=== PATIENT | male | born 1945 | race Caucasian/White ===

== ENCOUNTER 2017-06-14 11:55 | Observation (INO) | payer MEDICARE ==
[2017-06-14 12:29] LABS: Mean Corpuscular Hemoglobin 30.5 pg (27.0-31.0); Mean Corpuscular Volume 89.7 fl (80.0-94.0); RBC Distribution Width 12.9 % (11.5-14.5); Red Blood Cell (RBC) Count 5.23 mill/uL (4.70-6.10); White Blood Cell (WBC) Count 4.3 thou/uL (4.8-10.8)
[2017-06-14 12:46] LABS: ALT (SGPT) 44 U/L (8-55); AST (SGOT) 55 U/L (5-34); Albumin 4.3 g/dL (3.4-4.8); Alkaline Phosphatase 131 U/L (40-150); Anion Gap 15 mmol/L (10-20); BUN (Urea Nitrogen) 18 mg/dL (8.4-25.7); Bilirubin, Total 1.1 mg/dL (0.2-1.2); CK (CPK) 64 U/L (30-200); Calc. Creatinine Clearance 0 mL/min (70-130); Calcium 9.9 mg/dL (7.8-10.44); Carbon Dioxide 24 mmol/L (23-31); Chloride 101 mmol/L (98-107); Estimated GFR-MDRD 76; Globulin 3.4 g/dL (2.4-3.5); Glucose 216 mg/dL (83-110); Potassium 4.3 mmol/L (3.5-5.1); Protein, Total 7.7 g/dL (5.8-8.1); Sodium 136 mmol/L (136-145)
[2017-06-14 12:48] LABS: #Basophils 0.1 thou/uL (0.0-0.2); #Eosinphils 0.1 thou/uL (0.0-0.7); #Lymphocytes 0.9 thou/uL (1.20-3.40); #Monocytes 0.3 thou/uL (0.11-0.59); %Basophils 1.4 % (0.0-1.0); %Eosinophils 3.1 % (0.0-10.0); %Lymphocytes 21.5 % (21.0-51.0); %Monocytes 5.8 % (0.0-10.0); %Neutrophils 68.2 % (42.0-75.0); Mean Platelet Volume 8.1 fL (7.4-10.4); PLT Morphology Comment Appears Decreased; Platelet Count 115 thou/uL (130-400); RBC Morphology Normal
[2017-06-14 12:50] LABS: CKMB 1.5 ng/mL (0-6.6); Troponin I Less than 0.010 ng/mL (< 0.028)
--- NOTE | 2017-06-14 13:28 | CT ---
CT BRAIN NONCONTRAST: HISTORY: 72-year-old male with left facial and left hand hypesthesia (numbness). FINDINGS: There is no midline shift or any other mass effect. There is no evidence of acute intracranial hemor rhage, large cortical infarct, obstructive hydrocephalus, or extraaxial fluid collection. The calvar ium is intact. There is a tiny 2 mm metallic or calcific body in the preseptal soft tissues at the an terosuperior aspect of the left eye. No intraorbital, post septal gross abnormality is identified. Bi lateral tympanomastoid calvities are clear. Circumferential irregular mucosal thickening of the right maxillary sinus, causing approximately 50% opacification. This is associated with mildly thickened o sseous bates, suggesting that this is probably a chronic, long standing process. IMPRESSION: 1. No acute intracranial findings. 2. Tiny metallic or calcific foreign body in the preseptal region of the left eye. 3. Chronic right maxillary sinusitis. karo POS: CHRISTY
[2017-06-14] MEDS ORDERED: Dextrose 5% in Water 1,000 ML IV PRN (14:10)
[2017-06-14] MEDS ORDERED: Dextrose 50% Abboject 50 ML SYRINGE SLOW IVP PRN (14:10)
[2017-06-14] MEDS ORDERED: HumaLOG 300 UNITS/3 ML VIAL SC PRN (14:10)
[2017-06-14] MEDS ORDERED: Ondansetron ODT 4 MG TAB PO PRN (14:34)
[2017-06-14] MEDS ORDERED: HYDROcodone/Acetaminophen 5/325 mg Tablet PO PRN (14:34)
[2017-06-14] MEDS ORDERED: Acetaminophen 325 MG TAB PO PRN (14:34)
[2017-06-14] MEDS ORDERED: Senokot 8.6 MG TAB PO PRN (14:34)
[2017-06-14] MEDS ORDERED: Milk Of Magnesia 30 ML UDCUP PO PRN (14:34)
[2017-06-14] MEDS ORDERED: hydrALAZINE 20 MG/ML VIAL SLOW IVP PRN (14:36)
[2017-06-14] MEDS ORDERED: Aspirin 81 mg Enteric Coated Tablet PO SCH (14:45)
[2017-06-14] MEDS ORDERED: Aspirin 325 MG TAB ONE (15:12)
[2017-06-14 15:50] LABS: Troponin I Less than 0.010 ng/mL (< 0.028)
[2017-06-14 18:26] VITALS: BMI 25.6
[2017-06-14 18:59] LABS: Troponin I Less than 0.010 ng/mL (< 0.028)
[2017-06-14] MEDS ORDERED: Atorvastatin Calcium 40 MG TAB PO SCH (21:00)
[2017-06-14] MEDS: Docusate 100 MG CAP PO SCH (21:14)
--- NOTE | 2017-06-14 22:18 | HP ---
PRIMARY CARE PHYSICIAN: None. CHIEF COMPLAINT: Left-sided numbness and tingling. HISTORY OF PRESENT ILLNESS: Bobby Ibrahim is a 72-year-old male with a history of atrial fibrillation on Eliquis, CAD status post CABG x3, hypertension, hyperlipidemia, and type 2 diabetes mellitus, who presented to the emergency room after he had an episode of facial numbness on the left side, headaches, and twitching of his left eye. This was associated with tingling and numbness on the left arm. He denied facial droops, changes in speech, or loss of consciousness. He had no fevers, chills, nausea, vomiting, chest pain, shortness of breath, PND, palpitations, or orthopnea. It started around 11:00 a.m. suddenly and resolved after about an hour. There was no associated hemiparesis. No seizure activity. He reports that he has been on Eliquis for the past 6 weeks, but stopped last Thursday after he had two episodes of hematuria and was supposed to follow up with the urologist. He was to have held Eliquis until the appointment. PAST MEDICAL HISTORY: Atrial fibrillation, CABG x3, CAD, hypertension, hyperlipidemia, type 2 diabetes mellitus. PAST SURGICAL HISTORY: CABG, appendectomy. FAMILY HISTORY: Reviewed and not pertinent. SOCIAL HISTORY: Chews tobacco, does not drink alcohol or use illicit drugs. ALLERGIES: None. REVIEW OF SYSTEMS: Constitutional: Denies fevers or chills. Eyes: Positive twitching left orbital area. Denies photophobia or changes in vision. ENT: Negative. Cardiovascular: Negative. Respiratory: Negative. GI: Negative. : Negative. Musculoskeletal: Numbness/tingling in left arm, otherwise negative. Skin: Negative. Neurologic: Positive for paresthesia and dysesthesia. Endocrine: Negative. Hematology: Negative. Allergy/immunology : Negative. PHYSICAL EXAMINATION: VITAL SIGNS: Bradycardic with heart rate of 45 (patient on metoprolol). Other vital signs within normal limits. GENERAL: Not in acute distress, lying comfortably in bed. HEENT: PERRLA, EOMI. Not pale and anicteric. Moist oral mucosa. NECK: Supple, full range of movement. RESPIRATORY: Vesicular breath sounds bilaterally. No wheezes, rales, or rhonchi. CARDIOVASCULAR: S1, S2, only. Regular rate and rhythm. No murmurs, rubs, or gallops. ABDOMEN: Bowel sounds positive. Soft, nondistended, nontender, no organomegaly. EXTREMITIES: Strength 5/5 in all extremities. SKIN: Warm, dry, well-perfused. No rashes or lesions. NEUROLOGIC: Alert and well oriented. No focal deficits. PSYCHIATRIC: Normal mood and affect. LABORATORY DATA: His labs showed unremarkable. WBC apart from platelet count of 115. Chemistry also unremarkable apart from glucose of 260 and the initial troponin was less than 0.01. CT brain without contrast done revealed no acute intracranial findings showed chronic right maxillary sinusitis on a tiny metallic or calcific foreign body in the preseptal region of the left eye. ASSESSMENT AND PLAN: 1. Transient ischemic attack. The patient presented with paresthesia and dysesthesia, which lasted for about an hour with complete resolution of his symptoms. Due to his history of atrial fibrillation, and the fact that he recently held his anticoagulation before presenting with symptoms generally and concern for possible ischemic cerebrovascular accident. He will be admitted to the stroke unit, monitored on telemetry. An MRI brain without contrast will be obtained as well as a TTE. We will also allow for permissive hypertension and hold his home beta-blockers. Neurology will be consulted as well. In the meantime, he will be placed on sequential compression devices due to possible hemorrhagic conversions. We will follow up with his MRI. He will be continued on aspirin and statin. We will also get a lipid profile. 2. Coronary artery disease status post coronary artery bypass graft x3, stable , chest pain free. We will resume statins, aspirin, and his other home medications apart from metoprolol. 3. Atrial fibrillation. He is currently rate controlled. We will hold metoprolol. Monitor on telemetry. Eliquis was also be held. 4. Type 2 diabetes mellitus with hyperglycemia. He will be placed on a diabetic diet. Fingerstick glucose will be monitored a.c. and at bedtime. We will resume his home oral hypoglycemics and place on sliding scale insulin with hypoglycemia protocol in place. 5. Hyperlipidemia. Continue statin. MTDD
[2017-06-15 06:00] LABS: INR-International Normal Ratio 1.2; Prothrombin Time 15.2 SEC (12.0-14.7)
[2017-06-15 06:03] LABS: Anion Gap 9 mmol/L (10-20); BUN (Urea Nitrogen) 13 mg/dL (8.4-25.7); Calc. Creatinine Clearance 96 mL/min (70-130); Calcium 8.8 mg/dL (7.8-10.44); Carbon Dioxide 26 mmol/L (23-31); Cardiac Risk 3.6 (Less than 4.5); Chloride 106 mmol/L (98-107); Cholesterol 79 mg/dl (< 200 Desired); Estimated GFR-MDRD Greater than 90; Glucose 106 mg/dL (83-110); HDL Cholesterol 22 mg/dL (>60 Neg Risk); LDL Cholesterol, Calculated 44 mg/dL; Potassium 3.9 mmol/L (3.5-5.1); Sodium 137 mmol/L (136-145); Triglycerides 66 mg/dL (Less than 150)
[2017-06-15 06:05] LABS: #Eosinphils 0.2 thou/uL (0.0-0.7); #Lymphocytes 1.2 thou/uL (1.20-3.40); #Monocytes 0.4 thou/uL (0.11-0.59); #Neutrophils 2.1 thou/uL (1.40-6.50); %Eosinophils 4.5 % (0.0-10.0); %Monocytes 9.8 % (0.0-10.0); %Neutrophils 53.7 % (42.0-75.0); Hemoglobin 14.3 g/dL (14.0-18.0); Mean Corpuscular HGB CONC 33.9 g/dL (32.0-36.0); Mean Corpuscular Hemoglobin 30.6 pg (27.0-31.0); Platelet Count 99 thou/uL (130-400); RBC Distribution Width 12.9 % (11.5-14.5); Red Blood Cell (RBC) Count 4.67 mill/uL (4.70-6.10); White Blood Cell (WBC) Count 3.9 thou/uL (4.8-10.8)
[2017-06-15] MEDS ORDERED: ALPRAZolam 1 MG TAB PO PRN (06:36)
[2017-06-15] MEDS ORDERED: BENAZEPRIL HCL 20 MG PO SCH (09:00)
[2017-06-15] MEDS ORDERED: Non-Formulary Item 1 EACH (Insulin Glargine,Hum.Rec.Anlog [Toujeo Solostar] 10 UNIT) SQ SCH (09:00)
[2017-06-15] MEDS ORDERED: Finasteride 5 MG TAB PO SCH (09:00)
[2017-06-15] MEDS ORDERED: Aspirin 81 mg Enteric Coated Tablet PO SCH (09:00)
[2017-06-15] MEDS ORDERED: Insulin Detemir 100 UNITS/ML 10 UNITS in Pre-Filled Syringe 1 EACH SC SCH (09:00)
[2017-06-15] MEDS ORDERED: metFORMIN 500 MG TAB PO SCH (09:00)
[2017-06-15] MEDS: Docusate 100 MG CAP PO SCH (09:47)
--- NOTE | 2017-06-15 11:14 | PDOC.PN ---
- Subjective Encounter Start Date: 06/15/17 Encounter Start Time: 09:50 -: old records requested/rev Patient seen and examined. No new complaints. No overnight events - Objective MAR Reviewed: Yes Vital Signs & Weight: Vital Signs (12 hours) Temp Pulse Resp BP BP Pulse Ox 06/15/17 09:48 152/78 H 06/15/17 08:40 97.9 F 56 L 14 06/15/17 07:39 97.9 F 56 L 14 122/78 98 06/15/17 06:15 97.7 F 76 16 142/56 H 96 06/15/17 01:26 108/72 I&O: 06/14/17 06/15/17 06/16/17 06:59 06:59 06:59 Intake Total 480 Balance 480 Result Diagrams: 06/15/17 05:05 06/15/17 05:05 Additional Labs: Accuchecks 06/15/17 06/14/17 06/14/17 06:01 21:24 17:07 POC Glucose 119 H 231 H 290 H Radiology Reviewed by me: Yes EKG Reviewed by me: Yes Phys Exam - Physical Examination Constitutional: NAD HEENT: PERRLA, moist MMs, sclera anicteric Neck: no JVD, supple Respiratory: no wheezing, no rales, no rhonchi Cardiovascular: RRR, no significant murmur, no rub Gastrointestinal: soft, non-tender, no distention, positive bowel sounds Musculoskeletal: no edema, pulses present Neurological: non-focal, normal sensation, moves all 4 limbs Psychiatric: normal affect, A&O x 3 Skin: no rash, normal turgor Dx/Plan (1) TIA (transient ischemic attack) Status: Acute (2) CAD (coronary artery disease) Code(s): I25.10 - ATHSCL HEART DISEASE OF [place] CORONARY ARTERY W/O ANG PCTRS Status: Chronic (3) Diabetes type 2, controlled Code(s): E11.9 - TYPE 2 DIABETES MELLITUS WITHOUT COMPLICATIONS Status: Chronic (4) Dyslipidemia Code(s): E78.5 - HYPERLIPIDEMIA, UNSPECIFIED Status: Chronic (5) Hypertension Code(s): I10 - ESSENTIAL (PRIMARY) HYPERTENSION Status: Chronic (6) Paroxysmal atrial fibrillation Code(s): I48.0 - PAROXYSMAL ATRIAL FIBRILLATION Status: Chronic - Plan cont current plan of care, plan discussed w/ family * MRI and echo pending result * neurology to see later today * will need anticoagulation given his high CHADS2 score * medication reviewed as below * symptomatic treatment * discussed with . Review of Systems - Review of Systems ENT: negative: Ear Pain, Ear Discharge, Nose Pain, Nose Discharge, Nose Congestion, Mouth Pain, Mouth Swelling, Throat Pain, Throat Swelling, Other Respiratory: negative: Cough, Dry, Shortness of Breath, Hemoptysis, SOB with Excertion, Pleuritic Pain, Sputum, Wheezing Cardiovascular: negative: chest pain, palpitations, orthopnea, paroxysmal nocturnal dyspnea, edema, light headedness, other Gastrointestinal: negative: Nausea, Vomiting, Abdominal Pain, Diarrhea, Constipation, Melena, Hematochezia, Other Genitourinary: negative: Dysuria, Frequency, Incontinence, Hematuria, Retention , Other Musculoskeletal: negative: Neck Pain, Shoulder Pain, Arm Pain, Back Pain, Hand Pain, Leg Pain, Foot Pain, Other Skin: negative: Rash, Lesions, Dion, Bruising, Other - Medications/Allergies Allergies/Adverse Reactions: Allergies Allergy/AdvReac Type Severity Reaction Status Date / Time No Known Drug Allergies Allergy Verified 06/14/17 17:54 Medications: Current Medications Acetaminophen (Tylenol) 650 mg PO Q4H PRN PRN Reason: Headache/Fever or Pain Hydrocodone Bitart/Acetaminophen ([place] 5/325) 1 tab PO Q4H PRN PRN Reason: Moderate Pain (4-6) Alprazolam (Xanax) 1 mg PO HS PRN PRN Reason: Agitation Aspirin (Ecotrin) 81 mg PO DAILY [facility] Last Admin: 06/15/17 09:48 Dose: 81 mg Atorvastatin Calcium (Lipitor) 20 mg PO HS [facility] Benazepril HCl (Lotensin) 20 mg PO DAILY [facility] Last Admin: 06/15/17 09:48 Dose: 20 mg Dextrose/Water (Dextrose 50%) 25 gm SLOW IVP PRN PRN PRN Reason: Hypoglycemia Docusate Sodium (Colace) 100 mg PO BID [facility] Last Admin: 06/15/17 09:47 Dose: Not Given Finasteride (Proscar) 5 mg PO DAILY [facility] Last Admin: 06/15/17 09:47 Dose: 5 mg Glucagon (Glucagon) 1 mg IM PRN PRN PRN Reason: Hypoglycemia Hydralazine HCl (Apresoline) 10 mg SLOW IVP Q4H PRN PRN Reason: BP > 220/110 Dextrose/Water (D5w) 1,000 mls @ 0 mls/hr IV .Q0M PRN; As Directed PRN Reason: Hypoglycemia Insulin Detemir 10 units/ (Miscellaneous Medication) 0.1 mls @ 0 mls/hr SC DAILY [facility] Last Admin: 06/15/17 09:49 Dose: 0.1 mls Insulin Human Lispro (Humalog) 0 units SC .MILD SLIDING SCALE PRN PRN Reason: Mild Correctional Scale Magnesium Hydroxide (Milk Of Magnesium) 30 ml PO DAILYPRN PRN PRN Reason: Constipation Metformin HCl (Glucophage) 500 mg PO BID [facility] Last Admin: 06/15/17 09:47 Dose: 500 mg Ondansetron HCl (Zofran Odt) 4 mg PO Q6H PRN PRN Reason: Nausea/Vomiting Senna (Senokot) 2 tab PO HSPRN PRN PRN Reason: Constipation Sodium Chloride (Flush - Normal Saline) 10 ml IVF Q12HR [facility] Last Admin: 06/15/17 09:52 Dose: 10 ml Sodium Chloride (Flush - Normal Saline) 10 ml IVF PRN PRN PRN Reason: Saline Flush
--- NOTE | 2017-06-15 11:22 | MRI ---
MRI BRAIN NONCONTRAST: Date: 06/15/17 HISTORY: 72-year-old male with diagnosis of stroke. Left facial and left hand hypesthesia (numbness). FINDINGS: The ventricles are normal in size and configuration. There is no restricted diffusion, midline shift or any other mass effect, recent intraaxial hemorrhage, or extraaxial fluid collection. There are a few scattered punctate T2-hyperintensities in the cerebral white matter consistent with mild chronic ischemic white matter changes due to mild microvascular atherosclerosis. There is magnetic susceptibility artifact arising from the tiny metallic foreign body in the left eye lid that was demonstrated on the recent CT of 06/14/17. There is circumferential mucosal thickening c ausing moderate to severe partial opacification of the right maxillary sinus. There is mild mucosal t hickening throughout the left maxillary sinus. IMPRESSION: 1. Mild chronic ischemic white matter changes. 2. Otherwise normal brain. 3. Tiny ferromagnetic left preseptal foreign body. 4. Chronic right maxillary sinus mucosal changes. jnr POS: OFF
[2017-06-15 11:42] VITALS: BP 148/82; TEMP 97.6
--- NOTE | 2017-06-15 13:24 | DIS ---
DATE OF ADMISSION: 06/14/2017 DATE OF DISCHARGE: 06/15/2017 PRIMARY CARE PHYSICIAN: Dr. Michael Jha. DISCHARGE DISPOSITION: Home. PRIMARY DISCHARGE DIAGNOSIS: Transient ischemic attack. SECONDARY DISCHARGE DIAGNOSES: Diabetes, type 2; hypertension; dyslipidemia; coronary artery disease ; paroxysmal atrial fibrillation. PRIMARY PROCEDURE/OPERATION: None. RADIOLOGICAL INVESTIGATION: MRI brain negative for any acute stroke, but it showed chronic maxillary sinusitis. Echocardiography, official report is pending. CT brain was negative for any acute intra cranial process. Echocardiography subsequently reported as moderate pulmonary hypertension, atrial f ibrillation, EF 55%-60%. DISCHARGE MEDICATIONS: Xanax 1 mg p.o. at bedtime, aspirin 81 mg p.o. daily, benazepril 20 mg p.o. d aily, Proscar 5 mg p.o. daily, Lantus 10 units subcu daily, metformin 500 mg p.o. b.i.d., Zocor 40 mg p.o. at bedtime, Eliquis 5 mg p.o. b.i.d., Augmentin 875 mg p.o. twice daily for 7 days. CONTRAINDICATIONS: None. CODE STATUS: FULL CODE. INPATIENT CONSULTANTS: Neurology consulted while in hospital. TEST RESULTS PENDING ON DISCHARGE: None. ALLERGIES: No known drug allergy. DISCHARGE PLAN: Post hospital, the patient will follow up with primary care physician. HOSPITAL COURSE: A 72-year-old male who was admitted by Dr. Kim. Patient initially came to [facility] hospital room with a complaint of left-sided numbness and tingling and slurred speech. There was rené rn of CVA versus TIA. Initial CT brain was negative, and subsequently, we did an MRI brain that also negative for any stroke, but that was chronic maxillary sinusitis. Echocardiography did not show an y acute process. As this patient has underlying history of atrial fibrillation as well as diabetes a nd history of TIA, he is high risk for having stroke and that is why we started Eliquis 5 mg p.o. b.i .d.. Risks and benefits of this medication discussed. Overall, this patient is medically stable for discharge. He does not have any focal neurological deficit. On the day of discharge, I also prescr ibed Augmentin for maxillary sinusitis. All new medication prescriptions given to him. Patient is m edically stable for discharge today. The patient is seen and examined at bedside today. Please see my progress note from today for further details. Plan of care discussed with the patient's family me mber as well.
--- NOTE | 2017-06-15 14:07 | PRG ---
DATE OF SERVICE: 06/15/2017 SUBJECTIVE: Mr. Ibrahim was admitted to the hospital with some left-sided facial numbness. He under went neurologic evaluation and was found to have not had a stroke. He is feeling well now. No chest pain or pressure. OBJECTIVE: VITAL SIGNS: Blood pressure 148/82; pulse is in the 40-60 range, it is atrial fibrillation. LUNGS: Clear. CARDIAC: Irregularly irregular. ABDOMEN: Soft, nontender. EXTREMITIES: No edema. ASSESSMENT: 1. Previous bypass surgery. 2. Left facial numbness, ?transient ischemic attack versus other. 3. Atrial fibrillation, now persistent, relatively slow rate. PLAN: 1. He is to resume Eliquis 5 mg twice a day. 2. Continue aspirin. 3. Continue benazepril. 4. We will send him a home monitor. At some point, he would likely need pacemaker insertion. At th is point, it is not clear whether he may have had a TIA, being off the Eliquis for about a week. He developed hematuria and he was supposed to be off Eliquis a few days, but he has been off for a week. He has to go back on the Eliquis. We will give him a home monitor. Likely, he will need pacemaker insertion. He is also going to see urologist.
[2017-06-15] MEDS ORDERED: Atorvastatin Calcium 20 MG TAB PO SCH (21:00)
[2017-06-15] MEDS ORDERED: Simvastatin 40 MG TAB PO SCH (21:00)
== END 2017-06-15 14:17 | disposition home or self-care (01) ==
LOC: ERS 11:55 → 2SE 16:36
PROVIDERS: ADMIT Internal Medicine; ATTEND Internal Medicine
DX: G45.9 Transient cerebral ischemic attack, unspecified (principal); I10 Essential (primary) hypertension; E11.9 Type 2 diabetes mellitus without complications; I25.10 Atherosclerotic heart disease of native coronary artery without angina pectoris; I48.0 Paroxysmal atrial fibrillation; E78.5 Hyperlipidemia, unspecified; F17.220 Nicotine dependence, chewing tobacco, uncomplicated; Z95.1 Presence of aortocoronary bypass graft
CPT/HCPCS: 70450; 70551; 80048; 80053; 80061; 82550; 82553; 82962 ×2; 84484 ×2; 85025 ×2; 85610; 93005; 93306; 97139 ×5; 99285; G0378; G8978; G8979; G8980; G8987; G8988; G8989; 36415; 36416; A4216; G8996-GN-CH; G8997-GN-CH; J1815

== ENCOUNTER 2017-06-30 07:28 | Outpatient (CLI) | payer MEDICARE ==
[2017-06-30] MEDS ORDERED: ISOVUE-370 76%-LOCM 1 ML ONE (12:44)
== END 2017-06-30 07:29 | disposition home or self-care (01) ==
LOC: BICCT 07:28
PROVIDERS: ATTEND Urology
DX: R31.0 Gross hematuria (principal); N40.0 Benign prostatic hyperplasia without lower urinary tract symptoms; N32.89 Other specified disorders of bladder; N28.1 Cyst of kidney, acquired
CPT/HCPCS: 74178

== ENCOUNTER 2019-03-12 15:18 | Emergency (ER) | payer MEDICARE | END 2019-03-12 17:20 | disposition home or self-care (01) | LOC: ERS 15:18 | DX: S50.01XA Contusion of right elbow, initial encounter (principal); S40.021A Contusion of right upper arm, initial encounter; E11.9 Type 2 diabetes mellitus without complications; I10 Essential (primary) hypertension; W18.30XA Fall on same level, unspecified, initial encounter | CPT/HCPCS: 99283 ==

== ENCOUNTER 2021-12-26 12:04 | Outpatient (CLI) | payer OTHER ==
[2021-12-26 14:05] LABS: Hemoglobin 14.5 g/dL (13.5-17.5); Mean Corpuscular HGB CONC 35.3 g/dL (32.0-36.0); Mean Corpuscular Hemoglobin 31.1 pg (27.0-33.0); Mean Corpuscular Volume 88.2 fl (81.2-95.1); Mean Platelet Volume 10.8 fl (7.4-10.4); Platelet Count 99 10x3/uL (150-450); RBC Distribution Width 13.4 % (11.5-14.5); Red Blood Cell (RBC) Count 4.66 10x6/uL (4.32-5.72); White Blood Cell (WBC) Count 4.7 10x3/uL (3.5-10.5)
[2021-12-26 14:12] LABS: Anion Gap 10 mmol/L (10-20); BUN (Urea Nitrogen) 21 mg/dL (8.4-25.7); Calc. Creatinine Clearance 0 mL/min (70-130); Calcium 8.9 mg/dL (7.8-10.44); Carbon Dioxide 29 mmol/L (23-31); Chloride 103 mmol/L (98-107); Estimated GFR 79; Glucose 128 mg/dL (83-110); INR-International Normal Ratio 1.1; Prothrombin Time 11.9 sec (9.5-12.1); Sodium 138 mmol/L (136-145)
== END 2021-12-26 12:05 | disposition home or self-care (01) ==
LOC: LABBT 12:04
PROVIDERS: ATTEND Urology
DX: Z01.818 Encounter for other preprocedural examination (principal); N48.89 Other specified disorders of penis; Z20.822 Contact with and (suspected) exposure to COVID-19
CPT/HCPCS: 80048; 85027; 85610; 85730; 87811; 93005; 93010

== ENCOUNTER 2021-12-31 11:10 | Day surgery (SDC) | payer OTHER ==
[2021-12-27 13:35] VITALS: BMI 24.4
[2021-12-31] MEDS ORDERED: fentaNYL Citrate/PF 100 MCG/2 ML SYRINGE ONE (13:44)
[2021-12-31] MEDS ORDERED: Bupivacaine 0.25% 10 ML VIAL ONE ×2 (13:52→13:53)
[2021-12-31] MEDS ORDERED: Bacitracin Zinc Ointment 30 gm TUBE ONE (13:53)
[2021-12-31] MEDS ORDERED: CEFAZOLIN 2 GM VIAL ONE (13:57)
[2021-12-31] MEDS ORDERED: Sodium Chloride 0.9% 100 ML ONE (13:57)
[2021-12-31] MEDS ORDERED: Dexamethasone 20 MG/5 ML VIAL ONE (14:12)
[2021-12-31] MEDS ORDERED: Lidocaine 1% MPF 2 ML VIAL ONE (14:12)
[2021-12-31] MEDS ORDERED: Ondansetron PF 4 MG/2 ML Vial ONE (14:12)
[2021-12-31] MEDS ORDERED: PROPOFOL 200 MG/20 ML VIAL ONE (14:12)
== END 2021-12-31 16:05 | disposition home or self-care (01) ==
LOC: SDC 11:10
PROVIDERS: ATTEND Urology
PROC: 0VBSXZZ Excision of Penis, External Approach (ICD-10-PCS; principal; 2021-12-31)
DX: D07.4 Carcinoma in situ of penis (principal); I48.20 Chronic atrial fibrillation, unspecified; E11.9 Type 2 diabetes mellitus without complications; I10 Essential (primary) hypertension; Z79.01 Long term (current) use of anticoagulants; Z79.4 Long term (current) use of insulin; Z79.84 Long term (current) use of oral hypoglycemic drugs; Z79.899 Other long term (current) drug therapy; Z95.1 Presence of aortocoronary bypass graft
CPT/HCPCS: 36416; 88305; J0690; J1100; J2405; J2704; J3490; S0020

== ENCOUNTER 2022-01-25 06:37 | Emergency (ER) | payer OTHER ==
[2022-01-25] MEDS ORDERED: Dexamethasone 4 MG TAB ONE (09:09)
== END 2022-01-25 08:40 | disposition home or self-care (01) ==
LOC: ERS 06:37
DX: J30.9 Allergic rhinitis, unspecified (principal); R13.10 Dysphagia, unspecified; I48.91 Unspecified atrial fibrillation; I25.10 Atherosclerotic heart disease of native coronary artery without angina pectoris; E11.9 Type 2 diabetes mellitus without complications; I10 Essential (primary) hypertension; Z79.84 Long term (current) use of oral hypoglycemic drugs
CPT/HCPCS: 70360; J8540

== ENCOUNTER 2022-03-16 13:10 | Emergency (ER) | payer OTHER ==
[2022-03-16 14:01] LABS: #Basophils 0.1 thou/uL (0.0-0.2); #Eosinphils 0.1 thou/uL (0.0-0.7); #Lymphocytes 0.9 thou/uL (1.20-3.40); #Monocytes 0.3 thou/uL (0.11-0.59); #Neutrophils 3.4 thou/uL (1.40-6.50); %Basophils 1.5 % (0.0-1.0); %Eosinophils 1.3 % (0.0-10.0); %Lymphocytes 18.4 % (21.0-51.0); %Monocytes 5.6 % (0.0-10.0); %Neutrophils 73.2 % (42.0-75.0); Hemoglobin 14.6 g/dL (14.0-18.0); Mean Corpuscular HGB CONC 33.7 g/dL (32.0-36.0); Mean Corpuscular Hemoglobin 32.1 pg (27.0-31.0); Mean Corpuscular Volume 95.2 fl (78.0-98.0); Mean Platelet Volume 8.1 fL (7.4-10.4); Platelet Count 107 10x3/uL (130-400); RBC Distribution Width 13.1 % (11.5-14.5); Red Blood Cell (RBC) Count 4.54 mill/uL (4.70-6.10); White Blood Cell (WBC) Count 4.7 10x3/uL (4.8-10.8)
[2022-03-16] MEDS ORDERED: Acetaminophen 500 MG TAB ONE (14:09)
[2022-03-16] MEDS ORDERED: Ketorolac Tromethamine 30 MG/ML VIAL ONE (14:09)
[2022-03-16 14:23] LABS: ALT (SGPT) 34 U/L (8-55); AST (SGOT) 35 U/L (5-34); Albumin 3.5 g/dL (3.4-4.8); Alkaline Phosphatase 115 U/L (40-110); Anion Gap 12 mmol/L (10-20); BUN (Urea Nitrogen) 19 mg/dL (8.4-25.7); Bilirubin, Total 0.9 mg/dL (0.2-1.2); Calc. Creatinine Clearance 0 mL/min (70-130); Carbon Dioxide 25 mmol/L (23-31); Chloride 99 mmol/L (98-107); Estimated GFR 70; Globulin 2.7 g/dL (2.4-3.5); Glucose 331 mg/dL (83-110); Potassium 4.4 mmol/L (3.5-5.1); Protein, Total 6.2 g/dL (5.8-8.1); Sodium 132 mmol/L (136-145)
[2022-03-16 14:54] LABS: SARS-CoV-2 NAA Rapid Test Not Detected (NotDetected)
== END 2022-03-16 16:58 | disposition home or self-care (01) ==
LOC: ERS 13:10
DX: R53.81 Other malaise (principal); J02.9 Acute pharyngitis, unspecified; E78.5 Hyperlipidemia, unspecified; E11.9 Type 2 diabetes mellitus without complications; I10 Essential (primary) hypertension; Z20.822 Contact with and (suspected) exposure to COVID-19
CPT/HCPCS: 0240U; 71045; 80053; 82962; 83605; 84484; 85025; 86140; 87040; 87081; 87430; 93005; 96374; 99283; 36415; 36416; J1885